=== PATIENT | male | born 1955 | race Caucasian/White ===

== ENCOUNTER 2018-04-05 10:11 | Outpatient (RCR) | payer BC, OTHER | END 2018-04-07 | disposition home or self-care (01) | LOC: CR 10:11 | PROVIDERS: ATTEND Internal Medicine Cardiovascular Disease | DX: Z48.812 Encounter for surgical aftercare following surgery on the circulatory system (principal); Z95.1 Presence of aortocoronary bypass graft | CPT/HCPCS: 93798 ==

== ENCOUNTER 2018-05-13 11:37 | Outpatient (RCR) | payer BC | END 2018-07-07 | disposition home or self-care (01) | LOC: CR 11:37 | PROVIDERS: ATTEND Internal Medicine Cardiovascular Disease | DX: Z48.812 Encounter for surgical aftercare following surgery on the circulatory system (principal); Z95.1 Presence of aortocoronary bypass graft | CPT/HCPCS: 93798 ==

== ENCOUNTER → 2019-05-27 | Outpatient (CLI) | payer BC ==
--- NOTE | 2019-05-27 10:34 | Diagnostic Imaging Report ---
INDICATION: This patient has knee pain following a fall sustained one week earlier. There is knee joint effusion seen in the lateral radiograph. Best seen in the AP view there is a somewhat obliquely and longitudinally oriented lucency involving the proximal tibia superiorly approaching and perhaps extending into the articular surface of its lateral plateau. Given an injury and persistent knee pain a nondepressed and nondisplaced fracture with intra-articular extension is suspected. Would recommend its further evaluation with either CT or MRI. Proximal fibula appeared intact. 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 The patella and distal femurs appeared intact. IMPRESSION: Suspicion for nondisplaced and nondepressed proximal tibial fracture with likely intra-articular extension to the lateral plateau. Further workup with CT or MRI recommended moderate to large joint effusion noted as well. Report was called to Tony/MARIBEL c/o Michel Luz/MARINA by bridgette at 10:33 AM. Dictated by: Dictated on workstation # [id number]
== END ==
LOC: RAD FS 07:56
PROVIDERS: ATTEND Nurse Practitioner
DX: M25.562 Pain in left knee (principal); W19.XXXA Unspecified fall, initial encounter
CPT/HCPCS: 73562